=== PATIENT | male | born 1995 | race African-American/Black ===

== ENCOUNTER 2018-07-06 13:52 | Emergency (ER) | payer OTHER ==
[~2018-07-06] VITALS: Ht 188 cm; Wt 63.5 kg
[2018-07-06 13:54] VITALS: BP 129/69
--- NOTE | 2018-07-06 14:16 | NUR ---
SEEN AND EXAMINED BY DR. HOFF.
--- NOTE | 2018-07-06 14:40 | NUR ---
Patient discharged to home in stable condition. Written and verbal after care instructions given. Patient verbalizes understanding of instruction.
== END 2018-07-06 14:43 | disposition home or self-care (01) ==
LOC: ER 13:57
DX: S09.8XXA Other specified injuries of head, initial encounter (principal); V49.59XA Passenger injured in collision with other motor vehicles in traffic accident, initial encounter; Y93.89 Activity, other specified; Y92.410 Unspecified street and highway as the place of occurrence of the external cause; Y99.8 Other external cause status

== ENCOUNTER 2018-08-07 11:32 | Emergency (ER) | payer OTHER ==
[~2018-08-07] VITALS: Ht 182.9 cm; Wt 64.4 kg
[2018-08-07 11:36] VITALS: BP 129/82
[2018-08-07 12:18] LABS: CALCIUM, SERUM 9.5 mg/dL (8.5-10.1)
[2018-08-07 12:19] LABS: POTASSIUM 4.4 mmol/L (3.5-5.1)
[2018-08-07 12:24] LABS: ALBUMIN 4.4 g/dL (3.4-5.0); BILIRUBIN,TOTAL 0.5 mg/dL (0.2-1.0); TOTAL PROTEIN, SERUM 7.8 g/dL (6.4-8.2)
== END 2018-08-07 12:41 | disposition home or self-care (01) ==
LOC: ER 11:35
DX: Z20.6 Contact with and (suspected) exposure to human immunodeficiency virus [HIV] (principal); F12.10 Cannabis abuse, uncomplicated
CPT/HCPCS: 36415; 80053-TC; 80074; 87491; 87591; 87806